=== PATIENT | female | born 1975 | race Two or more races ===

== ENCOUNTER 2022-05-19 08:32 | Emergency (ER) | payer OTHER ==
[~2022-05-19] VITALS: Ht 154.9 cm; Wt 62.1 kg
[~2022-05-19 08:32] MED LIST: BENTYL10 MG/ML; BENZONATATE100 MG; DESPEC-EXP SYR473 ML; DOLOGESIC CAPLE1 TAB; KETO10TA2 PO; ORPH100T PO
[2022-05-19] MEDS ORDERED: PROTONIX20 MG PO (08:52)
== END 2022-05-19 12:58 | disposition home or self-care (01) ==
LOC: ER 08:32
DX: B34.8 Other viral infections of unspecified site (principal); Z20.828 Contact with and (suspected) exposure to other viral communicable diseases